=== PATIENT | female | born 1985 | race Caucasian/White ===

== ENCOUNTER 2023-02-08 14:58 | Emergency (ER) | payer OTHER, SELFPAY ==
[2023-02-08 15:19] VITALS: BP 115/80; PULSE 101; RESP 18; TEMP 36.1; O2SAT 97; BMI 41.0
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
[2023-02-08 17:19] VITALS: BP 128/83; PULSE 94; RESP 17; TEMP 36.1; O2SAT 100
== END 2023-02-08 17:56 | disposition home or self-care (01) ==
PROVIDERS: Emergency Provider Emergency Medicine Emergency Medical Services; PCP Internal Medicine
DX: S50.02XA Contusion of left elbow, initial encounter (principal); S39.012A Strain of muscle, fascia and tendon of lower back, initial encounter; S16.1XXA Strain of muscle, fascia and tendon at neck level, initial encounter; V43.52XA Car driver injured in collision with other type car in traffic accident, initial encounter; Y93.9 Activity, unspecified; Y92.9 Unspecified place or not applicable; Y99.9 Unspecified external cause status
CPT/HCPCS: 73070; 99283